=== PATIENT | male | born 1980 | race Caucasian/White ===

== ENCOUNTER 2017-12-14 20:57 | Emergency (ER) | payer BC, OTHER ==
[2017-12-14] MEDS ORDERED: Acetaminophen 500 MG TAB ONE (21:13)
--- NOTE | 2017-12-14 21:36 | RAD ---
THREE VIEWS OF THE RIGHT FOOT: 12/14/17 COMPARISON: None. HISTORY: Right foot injury with pain along the dorsal and distal aspect of the foot. FINDINGS: Three views of the right foot shows no evidence of acute fracture or dislocation. No focal soft tissu e swelling is seen. No degenerative change are present. IMPRESSION: No evidence of acute osseous abnormality. POS: [facility]
== END 2017-12-14 22:10 | disposition home or self-care (01) ==
LOC: SCSER 20:57
DX: S90.111A Contusion of right great toe without damage to nail, initial encounter (principal); S90.31XA Contusion of right foot, initial encounter; J45.909 Unspecified asthma, uncomplicated; Z79.899 Other long term (current) drug therapy; V03.90XA Pedestrian on foot injured in collision with car, pick-up truck or van, unspecified whether traffic or nontraffic accident, initial encounter; Y99.0 Civilian activity done for income or pay

== ENCOUNTER 2017-12-22 02:06 | Inpatient (IN) | payer BC ==
[2017-12-22 02:46] LABS: #Basophils 0.2 thou/uL (0.0-0.2); #Eosinphils 0.6 thou/uL (0.0-0.7); #Lymphocytes 4.4 thou/uL (1.20-3.40); #Neutrophils 10.5 thou/uL (1.40-6.50); %Basophils 0.9 % (0.0-1.0); %Eosinophils 3.5 % (0.0-10.0); %Lymphocytes 26.4 % (21.0-51.0); %Monocytes 6.2 % (0.0-10.0); Hemoglobin 11.3 g/dL (14.0-18.0); Mean Corpuscular HGB CONC 35.1 g/dL (32.0-36.0); Mean Corpuscular Hemoglobin 28.6 pg (27.0-31.0); Mean Corpuscular Volume 81.7 fl (80.0-94.0); Platelet Count 272 thou/uL (130-400); RBC Distribution Width 11.2 % (11.5-14.5); Red Blood Cell (RBC) Count 3.94 mill/uL (4.70-6.10); White Blood Cell (WBC) Count 16.7 thou/uL (4.8-10.8)
[2017-12-22 02:59] LABS: Acetaminophen Less than 6.0 mcg/mL (10.0-30.0); Alcohol Less than 10 mg/dL (Less than 10); Lipase 18 U/L (8-78); Salicylate Less than 8.0 mg/dL (15.0-30.0)
[2017-12-22 03:01] LABS: CKMB 0.9 ng/mL (0-6.6); Troponin I Less than 0.010 ng/mL (< 0.028)
[2017-12-22 03:02] LABS: ALT (SGPT) 15 U/L (8-55); AST (SGOT) 13 U/L (5-34); Albumin 3.9 g/dL (3.5-5.0); Alkaline Phosphatase 46 U/L (40-150); Anion Gap 17 mmol/L (10-20); BUN (Urea Nitrogen) 43 mg/dL (8.9-20.6); Bilirubin, Total 0.4 mg/dL (0.2-1.2); CK (CPK) 33 U/L (30-200); Calc. Creatinine Clearance 0 mL/min (70-130); Calcium 8.7 mg/dL (7.8-10.44); Carbon Dioxide 20 mmol/L (22-29); Chloride 108 mmol/L (98-107); Estimated GFR-MDRD Greater than 90; Globulin 2.2 g/dL (2.4-3.5); Glucose 132 mg/dL (70-105); Potassium 3.9 mmol/L (3.5-5.1); Protein, Total 6.1 g/dL (6.0-8.3); Sodium 141 mmol/L (136-145)
[2017-12-22] MEDS ORDERED: Sodium Chloride 0.9% 100 ML ONE (03:10)
[2017-12-22] MEDS ORDERED: Piperacillin/Tazobactam 3.375 GM VIAL ONE (03:10)
[2017-12-22] MEDS ORDERED: Pantoprazole 40 MG VIAL ONE (03:14)
[2017-12-22] MEDS ORDERED: Acetaminophen 325 MG TAB PO PRN (04:51)
[2017-12-22] MEDS ORDERED: Ondansetron HCl/PF 4 MG/2 ML Vial IVP PRN ×2 (04:51→13:32)
[2017-12-22] MEDS ORDERED: Ondansetron ODT 4 MG TAB SL PRN (04:51)
[2017-12-22] MEDS: Sodium Chloride 0.9% 1,000 ML IV SCH ×5 (05:04→20:49)
[2017-12-22 05:17] VITALS: BMI 26.6
[2017-12-22] MEDS ORDERED: metroNIDAZOLE 500 MG in Premix Bag 1 BAG IVPB SCH (06:00)
[2017-12-22 06:22] LABS: Lactic Acid 0.8 mmol/L (0.5-2.2)
[2017-12-22] MEDS ORDERED: Famotidine/PF 20 mg/2ml Vial SLOW IVP SCH (09:00)
[2017-12-22] MEDS ORDERED: Pantoprazole 40 MG VIAL IVP SCH (09:00)
[2017-12-22 09:33] LABS: ALT (SGPT) 12 U/L (8-55); AST (SGOT) 11 U/L (5-34); Albumin 3.4 g/dL (3.5-5.0); Alkaline Phosphatase 42 U/L (40-150); Anion Gap 10 mmol/L (10-20); BUN (Urea Nitrogen) 40 mg/dL (8.9-20.6); Bilirubin, Total 0.3 mg/dL (0.2-1.2); Calc. Creatinine Clearance 150 mL/min (70-130); Carbon Dioxide 23 mmol/L (22-29); Chloride 111 mmol/L (98-107); Estimated GFR-MDRD Greater than 90; Globulin 1.5 g/dL (2.4-3.5); Glucose 104 mg/dL (70-105); Potassium 4.7 mmol/L (3.5-5.1); Protein, Total 4.9 g/dL (6.0-8.3); Sodium 139 mmol/L (136-145)
[2017-12-22 09:45] LABS: #Eosinphils 0.1 thou/uL (0.0-0.7); #Lymphocytes 1.7 thou/uL (1.20-3.40); #Monocytes 0.5 thou/uL (0.11-0.59); #Neutrophils 8.5 thou/uL (1.40-6.50); %Basophils 0.2 % (0.0-1.0); %Eosinophils 1.4 % (0.0-10.0); %Lymphocytes 15.9 % (21.0-51.0); %Monocytes 4.2 % (0.0-10.0); %Neutrophils 78.2 % (42.0-75.0); Hemoglobin 9.1 g/dL (14.0-18.0); Mean Corpuscular HGB CONC 35.5 g/dL (32.0-36.0); Mean Corpuscular Hemoglobin 30.4 pg (27.0-31.0); Mean Corpuscular Volume 85.8 fl (80.0-94.0); Mean Platelet Volume 7.8 fL (7.4-10.4); Platelet Count 193 thou/uL (130-400); RBC Distribution Width 11.6 % (11.5-14.5); White Blood Cell (WBC) Count 10.9 thou/uL (4.8-10.8)
--- NOTE | 2017-12-22 09:55 | RAD ---
CHEST 1 VIEW: Date: 12/22/17 HISTORY: Syncope. COMPARISON: None. FINDINGS: Lungs are clear. No pneumothorax or effusion. Cardiac silhouette and mediastinal contours within norm al limits. IMPRESSION: No acute intrathoracic abnormality. POS: [facility]
--- NOTE | 2017-12-22 10:36 | HP ---
DATE OF ADMISSION: 12/22/2017 HISTORY OF PRESENT ILLNESS: This is a 37-year-old white male who presents with syncope and diarrhea. The patient has been doing well. Approximately 1 year ago, he underwent a bariatric surgery in [facility] he had lost 100 pounds. 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 The re were serving [employer] sandwiches. He was eating this for over the course of 2 days. Yesterday, a pproximately 1:00 p.m., he suddenly became queasy, lightheaded, and dizzy and did not feel very well. He was told to go home and he developed explosive diarrhea. He was on the toilet all day long. Fi rama, his discovered him on the floor passed out with possibly having a seizure-like activity. He was then brought to the emergency room for further evaluation. He states that he was eaten a Pot belly sandwich over the course of 2 days, which was refrigerated but he thinks it may have been spoil ed. He states several other employees also became ill and therefore he told his boss and I believe i t was not served. PAST MEDICAL HISTORY: Depression, rheumatoid arthritis, vitamin D deficiency, restless leg syndrome, reflux, asthma, hypertension. PAST SURGICAL HISTORY: Include appendectomy, tonsils, hemorrhoids, gastric bypass, Dr. Duenas on . FAMILY HISTORY: Unremarkable. SOCIAL HISTORY: He does not smoke, does not drink. 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 He is . ALLERGIES: None. MEDICATIONS: Include Singulair 10 daily, Celexa 20 daily, Wellbutrin-SR 150 daily, Claritin 10 daily , Naprosyn p.r.n. REVIEW OF SYSTEMS: As above. PHYSICAL EXAMINATION: VITAL SIGNS: Temperature 98.0, pulse 72, respirations 16, pulse ox 98, blood pressure 103/58. GENERAL: The patient is a very lightheaded, weak appearing, pale. HEENT: Clear. Mucous membranes dry. NECK: Supple. HEART: Regular rate and rhythm. LUNGS: Clear. ABDOMEN: Soft, relatively nontender. EXTREMITIES: No edema. LABORATORY: White count 16.7, H&H 11 and 32, platelet 272. Electrolytes normal. Creatinine 0.87, B UN 43, glucose 132 and 104. Lactic acid 3.8, lipase 18. Liver functions normal. ASSESSMENT: 1. Acute gastroenteritis/dysentery possibly secondary to spoiled [employer] sandwich. 2. Black tarry stools. 3. Hypotension. 4. Status post bariatric surgery one year ago. 5. History of depression. 6. History of rheumatoid arthritis. 7. Vitamin D deficiency. PLAN: 1. Consult GI. 2. N.p.o. 3. The patient's blood cultures and stool cultures were obtained. 4. The patient was started on Flagyl and piperacillin antibiotics.
[2017-12-22] MEDS ORDERED: Lidocaine 1% PF 5 ML VIAL ONE (11:24)
[2017-12-22] MEDS ORDERED: PROPOFOL 200 MG/20 ML VIAL ONE (11:24)
[2017-12-22] MEDS ORDERED: Piperacillin/Tazobactam 3.375 GM in Sodium Chloride 0.9% 100 ML IVPB SCH (12:00)
--- NOTE | 2017-12-22 12:02 | CT ---
PRELIMINARY REPORT/[facility]/EMERGENTY AFTER-HOURS PROCEDURE CT Abdomen and Pelvis With Intravenous Contrast CLINICAL HISTORY: 37 years old, male; Signs and symptoms and abnormal findings; Abnormal lab test; Elevated wbc; Nausea and other: Diarrhea; Prior surgery; Surgery date: 6+ months; Surgery type: Fredrick-en-y last year, appe ndectomy as a child; Patient HX: Diarrhea for 2 days, syncope tonight while on toilet, elevated wbc, lactate TECHNIQUE: Axial computed tomography images of the abdomen and pelvis with intravenous contrast. All CT scans at this facility use one or more dose reduction techniques, viz.: automated exposure control; ma/kV adj ustment per patient size (including targeted exams where dose is matched to indication; i.e. head); or iterative reconstruction technique. Coronal reformatted images were created and reviewed. CONTRAST: 95 mL of [id number] administered intravenously. COMPARISON: No relevant prior studies available. FINDINGS: Lung bases: No acute findings. ABDOMEN: Liver: No acute findings. No mass. Gallbladder and bile ducts: No calcified stones. No ductal dilation. Pancreas: No ductal dilation. No mass. Spleen: No mass. Adrenals: No mass. Kidneys and ureters: No acute findings. No hydronephrosis. No solid mass. Stomach and bowel: Prior gastric bypass. No evidence of bowel obstruction. Fecal loading. Diverticulo sis. Appendix: Prior appendectomy. PELVIS: Bladder: No acute findings. No mass. Reproductive: No acute findings. ABDOMEN and PELVIS: Intraperitoneal space: No acute findings. No free air. No significant fluid collection. Bones/joints: No acute fracture. Soft tissues: No acute findings. Vasculature: No acute findings. No abdominal aortic aneurysm. Lymph nodes: No lymphadenopathy. IMPRESSION: No acute findings. Thank you for allowing us to participate in the care of your patient. Dictated and Authenticated by: Amilcar Preciado MD 12/22/2017 4:06 AM Central Time ([place] & [place]) FINAL REPORT CT ABDOMEN AND PELVIS WITH CONTRAST: Date: 12/22/17 HISTORY: Nausea and vomiting. Sick for past 2 days. Elevated lactic acid and white blood cell count. COMPARISON: None. FINDING/IMPRESSION: Findings and impression are concordant with the preliminary report by Makenna. POS: [facility]
--- NOTE | 2017-12-22 12:04 | CT ---
PRELIMINARY REPORT/[facility]/EMERGENTY AFTER-HOURS PROCEDURE CT Head Without Intravenous ContrasT CLINICAL HISTORY: 37 years old, male; Injury or trauma and signs and symptoms; Fall; Initial encounter; Unconscious; Al teration of consciousness and syncope and collapse; Patient HX: Passed out today while trying to use bathroom. Has been sick for past two days with diarrhea. 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 r chantals he fell between commode and tp trujillo and as she was helping him he had generalized shaking ep isode. TECHNIQUE: Axial computed tomography images of the head/brain without intravenous contrast. All CT scans at this facility use one or more dose reduction techniques, viz.: automated exposure control; ma/Kv adjustme nt per patient size (including targeted exams where dose is matched to indication; i.e. head); or ite rative reconstruction technique. COMPARISON: No relevant prior studies available. FINDINGS: Brain: No hemorrhage. No significant white matter disease. No edema. Ventricles: No ventriculomegaly. Bones/joints: No acute fracture. Soft tissues: No acute findings. Sinuses: No significant air fluid levels. Mastoid air cells: No significant fluid. IMPRESSION: No acute findings. Thank you for allowing us to participate in the care of your patient. Dictated and Authenticated by: Amilcar Preciado MD 12/22/2017 3:27 AM Central Time ([place] & [place]) FINAL REPORT HEAD CT WITHOUT CONTRAST: Date: 12/22/17 COMPARISON: None. HISTORY: Altered mental status, syncope, collapse. FINDINGS: I agree with the preliminary report given by Makenna. Imaged paranasal sinuses and mastoid air cells are well aerated. No displaced calvarial fracture, intracranial hemorrhage, midline shift, or mass effec t. IMPRESSION: No acute findings. POS: [facility]
[2017-12-22] MEDS: Piperacillin/Tazobactam 3.375 GM in Sodium Chloride 0.9% 100 ML IVPB SCH ×2 (12:25→20:08)
--- NOTE | 2017-12-22 12:59 | CON ---
DATE OF CONSULTATION: 12/22/2017 GI INPATIENT CONSULTATION NOTE REQUESTING PHYSICIAN: Dr. Prasad. REASON FOR CONSULTATION: GI bleeding. HISTORY OF PRESENT ILLNESS: Esteban Barney is a 37-year-old man who was admitted to the hospital this morning after a syncopal episode around midnight. He has a history significant for gastric ulcers b ack in the . His last EGD in 2003 showed duodenitis and some esophagitis with my partner, Dr. Brooklynn Rogers. In last year in 11/2016, the patient underwent a Fredrick-en-Y gastric bypass with Dr. Bravo yanes. He lost 100 pounds afterward and did very well with this. He has some arthritis with a diagnosis of rheumatoid arthritis, for which he does take naproxen 2 pills per day. He had taken a PPI in the past, but has not been on a PPI recently. A couple of days ago, the patient started to feel a bit lightheaded and queasy. He started having so me nausea. He had several episodes of nonbloody emesis and then started having diarrhea, which he de scribes as tarry, slammy and dark. This happened several times over the course of a couple of days. There was a little bit of mild abdominal pain, but not much. Then, yesterday at midnight, he went i nto the bathroom. His went in sometime later and found him having passed out in the bathroom, l jamie beside the commode. He was brought to the hospital where he was found to be acutely anemic with hemoglobin 11.3 and in fact this has dropped to 9.1 this morning. Baseline hemoglobin is about 14. He also has an elevated BUN to creatinine ratio with BUN 40, creatinine 0.72. Lactic acid was initi ally elevated to 3.8, though this has declined to normal at 0.8 with fluid resuscitation. He was put on IV Protonix and started empirically on antibiotics. He states his last melenic bowel movement wa s actually yesterday. Currently, he appears hemodynamically stable, but still feels a little bit diz zy and weak. He is not tachycardic. REVIEW OF SYSTEMS: Full review of systems including constitutional, head, eyes, ears, nose, throat, GI, , cardiovascular, respiratory, musculoskeletal, and neurologic systems is negative except as no marcin in the HPI. PAST MEDICAL HISTORY: Fredrick-en-Y gastric bypass in 11/2016, duodenitis in 2003, gastric ulcer in 1993 , depression, rheumatoid arthritis, restless leg syndrome, asthma, hypertension, GERD, appendectomy, hemorrhoid surgery. ALLERGIES: No known drug allergies. OUTPATIENT MEDICATIONS: Singulair, Celexa, Wellbutrin, Claritin, naproxen 2 tablets daily. INPATIENT MEDICATIONS: Protonix 40 mg IV was administered, IV metronidazole, IV Zosyn, IV fluids run roxi at 250 mL per hour. FAMILY HISTORY: Noncontributory. SOCIAL HISTORY: No smoking or alcohol use. 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 He is . PHYSICAL EXAMINATION: VITAL SIGNS: Temperature 98.0, pulse 73, blood pressure 103/58, 98% oxygen saturation on room air. GENERAL: A 37-year-old man lying in bed comfortably, pale, but in no acute distress. SKIN: He is pale, no jaundice, no rash visible or palpable. EYES: No scleral icterus. Extraocular movements intact. ENT: Mucous membranes moist. No oral lesions. LYMPH: No submandibular or supraclavicular lymphadenopathy. THYROID: Nontender to palpation. HEART: Regular rate and rhythm. LUNGS: Clear to auscultation bilaterally. ABDOMEN: Bowel sounds present, soft and nontender to palpation. EXTREMITIES: No peripheral edema. VESSELS: Radial pulses 2+ bilaterally. NEUROLOGICAL: Cranial nerves II-XII intact bilaterally. No focal deficits. LABORATORY STUDIES: WBC 10.9, hemoglobin 9.1, this is a decline from 11.3 earlier this morning. [facility] hemoglobin is 14, platelets 193. Sodium 139, potassium 4.7, BUN 40, creatinine 0.72. Lipase 1 8. LFTs normal with total bilirubin 0.4, alkaline phosphatase 46, AST 13, ALT 15. Lactic acid 0.8. Plasma alcohol level is negative. Plasma acetaminophen levels negative. Salicylate levels negative . ASSESSMENT AND PLAN: 1. Melena. 2. Acute blood loss anemia. 3. History of Fredrick-en-Y gastric bypass. 4. History of chronic NSAID use for arthritis. The patient's presentation seems most consistent with acute upper gastrointestinal bleeding over the past couple of days. He has had significant hemoglobin decline. BUN and creatinine ratio is elevate d. He is certainly at risk for peptic ulcer disease or for possible anastomotic ulcer due to his his tory of Fredrick-en-Y gastric bypass and his chronic NSAID use. He is not currently on any acid suppress ion as an outpatient. Agree with the IV Protonix and change this to every 12 hours. We will plan fo r diagnostic upper endoscopy later today. We will also order stool studies to rule out enteric patho gens. Monitor the H&H closely. Transfuse if needed. If the patient were to develop recurrent presy ncope or tachycardia, consider moving to a monitored setting. Thank you for the consultation. Further recommendations following upper endoscopy later today.
[2017-12-22] MEDS ORDERED: Meperidine HCl/PF 25 MG/ML VIAL SLOW IVP PRN (13:32)
[2017-12-22] MEDS ORDERED: Promethazine HCl 25 MG/ML VIAL SLOW IVP PRN (13:32)
[2017-12-22] MEDS ORDERED: Promethazine HCl 25 MG/ML VIAL IM PRN (13:32)
[2017-12-22] MEDS ORDERED: Iopamidol 370 76% 100 ML VIAL ONE (14:13)
[2017-12-22] MEDS: metroNIDAZOLE 500 MG in Premix Bag 1 BAG IVPB SCH ×2 (14:40→20:48)
--- NOTE | 2017-12-22 17:42 | OP ---
GASTROINTESTINAL ENDOSCOPY NOTE DATE OF PROCEDURE: 12/22/2017 SURGEON: Fuad Cornejo M.D. TECHNICAL CONSULTANT SURGEON: None. PROCEDURE: Esophagogastroduodenoscopy, diagnostic. INDICATION: Melena and acute blood loss anemia in a patient with a history of Fredrick-en-Y gastric bypa ss surgery and chronic naproxen use. MEDICATIONS: See anesthesia record. FINDINGS: After discussion of the risks, benefits and alternatives of the procedure, informed consen t was obtained and witnessed. Pre-endoscopic cardiopulmonary examination was satisfactory. Timeout was performed before sedation was achieved. Sedation was achieved with anesthesia assistance in the endoscopy unit. A Pentax adult upper endoscope was placed into the oropharynx and passed through the cricopharyngeus under direct visualization. The esophageal mucosa appeared normal throughout with a normal-appearing Z-line. There was no evidence of any esophageal varices. The endoscope was passed forward into the gastric pouch. The gastric pouch was quite small, but the mucosa of the gastric po uch was fully examined and appeared normal. The endoscope was then advanced to the gastroenteric vishnu stomosis. Just beyond the anastomosis, there was an ulceration measuring about 1.5 cm in diameter. This was not deep. Overall, it had a clean white base, with a single tiny red spot. There was no vi sible vessel, no active bleeding, no adherent clot, no high risk stigmata for rebleeding. No endosco pic therapy was applied to this lesion. The endoscope was then advanced further down the efferent li mb of jejunum to a distance of 100 cm. I was not able to reach the distal anastomosis. All of the e xamined jejunal mucosa appeared normal. There was no old blood or active bleeding noted. The upper endoscope was then completely withdrawn and the patient allowed to recover. The patient tolerated th e procedure well. There were no immediate post-procedure complications. IMPRESSION: 1. Normal post Fredrick-en-Y anatomy. 2. Single 1.5 cm post-anastomotic ulcer with a clean base and a single tiny red spot, no active blee ding or visible vessel, no high risk stigmata for rebleeding. 3. Otherwise, normal upper endoscopy, examines to 100 cm, estimated at the mid jejunum. RECOMMENDATIONS: 1. IV PPI twice daily. Upon hospital discharge, switch to oral Protonix 40 mg twice daily. This wo uld need to be continued for at least 2 months, then continue to once daily dosing thereafter. 2. The patient needs to avoid nonsteroidal anti-inflammatory drugs going forward, including the napr oxen that he has been taking. 3. Advance diet. 4. Follow up H&H tomorrow. 5. Monitor for any signs of overt rebleeding. 6. Will check H. pylori serology with morning labs tomorrow. Please call any time with questions or concerns.
[2017-12-22] MEDS: Pantoprazole 40 MG VIAL IVP SCH (20:08)
[2017-12-23] MEDS: Sodium Chloride 0.9% 1,000 ML IV SCH ×2 (01:48→08:03)
[2017-12-23] MEDS: Acetaminophen 325 MG TAB PO PRN ×2 (02:43→12:01)
[2017-12-23] MEDS: Piperacillin/Tazobactam 3.375 GM in Sodium Chloride 0.9% 100 ML IVPB SCH ×3 (03:58→20:16)
[2017-12-23] MEDS: metroNIDAZOLE 500 MG in Premix Bag 1 BAG IVPB SCH ×3 (05:03→20:54)
[2017-12-23 05:08] LABS: #Eosinphils 0.2 thou/uL (0.0-0.7); #Lymphocytes 2.8 thou/uL (1.20-3.40); #Monocytes 0.4 thou/uL (0.11-0.59); #Neutrophils 3.7 thou/uL (1.40-6.50); %Basophils 0.6 % (0.0-1.0); %Eosinophils 2.6 % (0.0-10.0); %Lymphocytes 39.4 % (21.0-51.0); %Neutrophils 51.4 % (42.0-75.0); Mean Corpuscular HGB CONC 35.1 g/dL (32.0-36.0); Mean Corpuscular Volume 85.4 fl (80.0-94.0); Platelet Count 147 thou/uL (130-400); RBC Distribution Width 11.6 % (11.5-14.5); Red Blood Cell (RBC) Count 2.32 mill/uL (4.70-6.10); White Blood Cell (WBC) Count 7.1 thou/uL (4.8-10.8)
[2017-12-23 05:19] LABS: Anion Gap 9 mmol/L (10-20); BUN (Urea Nitrogen) 21 mg/dL (8.9-20.6); Calc. Creatinine Clearance 146 mL/min (70-130); Calcium 7.5 mg/dL (7.8-10.44); Carbon Dioxide 21 mmol/L (22-29); Chloride 114 mmol/L (98-107); Estimated GFR-MDRD Greater than 90; Glucose 74 mg/dL (70-105); Potassium 3.7 mmol/L (3.5-5.1); Sodium 140 mmol/L (136-145)
[2017-12-23] MEDS ORDERED: Sodium Chloride 0.9% 1,000 ML IV SCH (07:45)
--- NOTE | 2017-12-23 08:48 | PRG ---
DATE OF SERVICE: 12/23/2017 SUBJECTIVE: The patient is feeling much better this morning. He is able to ambulate to the bathroom without feeling faint. OBJECTIVE: VITAL SIGNS: Temperature 98.0, pulse 86, respiration 14, pulse ox 96, blood pressure 95/54. HEART: Regular rate and rhythm. LUNGS: Clear. ABDOMEN: Soft, nontender. LABORATORY DATA: White count 7.1, H&H is 7.0 and 19.8. Sodium 140, potassium 3.7, creatinine 0.74, BUN 21 down from 40. Stool studies pending. ASSESSMENT: 1. Post anastomotic 1.5 cm ulcer. 2. Acute blood loss anemia secondary to nonsteroidals. 3. Hypotension, resolving. 4. Status post bariatric surgery, Fredrick-en-Y. 5. History of depression. 6. History of rheumatoid arthritis. 7. History of vitamin D deficiency. PLAN: 1. Protonix 40 IV b.i.d. and upon discharge, p.o. b.i.d. x2 months. 2. Advance diet. 3. Recheck CBC, BMP in the a.m. 4. Change IV fluids to half normal saline with 20 KCl per liter at 125. 5. Begin iron 325 p.o. b.i.d.
[2017-12-23] MEDS: 1/2 NS w/KCL 20 mEq 1,000 ML IV SCH ×2 (09:16→18:33)
[2017-12-23] MEDS: Ferrous Sulfate 325 MG TAB PO SCH ×2 (09:16→17:07)
[2017-12-23] MEDS: Pantoprazole 40 MG VIAL IVP SCH ×2 (09:16→20:16)
--- NOTE | 2017-12-23 13:45 | PRG ---
DATE OF SERVICE: 12/23/2017 GI INPATIENT DAILY PROGRESS NOTE SUBJECTIVE: Mr. Barney is feeling okay from a GI perspective. He has good appetite and is tolerating his diet. No nausea or abdominal pain. No bowel movements since yesterday. Certainly, no further melena. He has remained hemodynamically stable. He is complaining of joint pain from his arthritis and some fatigue. OBJECTIVE: VITAL SIGNS: Temperature 98.0, pulse 77, blood pressure 92/54, 96% oxygen saturation on room air. GENERAL: No acute distress. HEART: Regular rate and rhythm. LUNGS: Clear to auscultation bilaterally. ABDOMEN: Soft, nontender to palpation. EXTREMITIES: No peripheral edema. LABORATORY STUDIES: Sodium 140, potassium 3.7, BUN declined to 21, creatinine 0.74. WBC 7.1, hemogl obin down to 7.0, platelets 147. ASSESSMENT AND PLAN: 1. Post-anastomotic ulcer associated with Fredrick-en-Y gastric bypass, no high risk stigmata for reblee ding on EGD yesterday. 2. Melena, resolved. 3. Acute blood loss anemia. Continue with the IV PPI while inpatient. I see no evidence of continu ed gastrointestinal bleeding at this time, despite the continued decline in hemoglobin. Please call back anytime if there is any concern for overt rebleeding.
[2017-12-23] MEDS: HYDROcodone/Acetaminophen 7.5/325 mg Tablet PO PRN ×2 (14:55→20:54)
[2017-12-24] MEDS: Piperacillin/Tazobactam 3.375 GM in Sodium Chloride 0.9% 100 ML IVPB SCH (03:23)
[2017-12-24] MEDS: HYDROcodone/Acetaminophen 7.5/325 mg Tablet PO PRN (03:41)
[2017-12-24 04:53] LABS: #Eosinphils 0.2 thou/uL (0.0-0.7); #Lymphocytes 1.9 thou/uL (1.20-3.40); #Monocytes 0.4 thou/uL (0.11-0.59); #Neutrophils 3.4 thou/uL (1.40-6.50); %Basophils 0.4 % (0.0-1.0); %Eosinophils 3.4 % (0.0-10.0); %Monocytes 6.1 % (0.0-10.0); %Neutrophils 57.1 % (42.0-75.0); Hemoglobin 7.3 g/dL (14.0-18.0); Mean Corpuscular HGB CONC 35.4 g/dL (32.0-36.0); Mean Corpuscular Hemoglobin 30.5 pg (27.0-31.0); Mean Corpuscular Volume 86.2 fl (80.0-94.0); Mean Platelet Volume 7.3 fL (7.4-10.4); Platelet Count 144 thou/uL (130-400); RBC Distribution Width 11.7 % (11.5-14.5); White Blood Cell (WBC) Count 5.9 thou/uL (4.8-10.8)
[2017-12-24 05:00] LABS: Anion Gap 11 mmol/L (10-20); BUN (Urea Nitrogen) 10 mg/dL (8.9-20.6); Calc. Creatinine Clearance 157 mL/min (70-130); Calcium 8.2 mg/dL (7.8-10.44); Carbon Dioxide 21 mmol/L (22-29); Chloride 111 mmol/L (98-107); Estimated GFR-MDRD Greater than 90; Glucose 77 mg/dL (70-105); Potassium 3.8 mmol/L (3.5-5.1); Sodium 139 mmol/L (136-145)
[2017-12-24] MEDS: 1/2 NS w/KCL 20 mEq 1,000 ML IV SCH (05:06)
[2017-12-24] MEDS: metroNIDAZOLE 500 MG in Premix Bag 1 BAG IVPB SCH (05:06)
--- NOTE | 2017-12-24 08:57 | PRG ---
DATE OF SERVICE: 12/24/2017 SUBJECTIVE: The patient is feeling some better. He denies stomach pain. He is tolerating fluids an d eating. His appetite has improved. He complains of a severe headache over the past 1-2 days. He has had minimal improvement with Tylenol and hydrocodone at this time. He has not been out of bed [facility], but is ambulating in the hallway, continues to have diarrhea as well as dark black stools as late as this morning at 5:00 a.m. He denies lightheadedness at this time. OBJECTIVE: VITAL SIGNS: Temperature 98.0, pulse of 73, respirations 16, blood pressure 100/59, pulse ox is 96% on room air. GENERAL: He is awake and alert. He appears uncomfortable, but no acute distress. HEENT: Mucosa is moist. NECK: Supple. HEART: Regular rate and rhythm. LUNGS: Clear. ABDOMEN: Positive bowel sounds in all 4 quadrants. ABDOMEN: Soft, nontender, nondistended, no epigastric tenderness. EXTREMITIES: No edema. LABORATORY DATA: White blood cell count down to 5.9 thousand from 16.7 thousand 2 days ago, hemoglo bin and hematocrit 7.3 and 20.7, platelets 144. Sodium 139, potassium 3.8, chloride 111, CO2 of 21, BUN and creatinine 10 and 0.69 which is down from 40 two days ago, calcium of 8.2, albumin 3.4 two da ys ago. ASSESSMENT AND PLAN: 1. This is a 37-year-old gentleman admitted for upper GI bleed secondary to post-anastomotic ulcer a ssociated with Fredrick-en-Y gastric bypass and chronic NSAID use. The patient is status post esophagoga stroduodenoscopy with no further bleeding noted. His blood count appears to be stabilizing at this t felicia, but he continues to admit having melena. I will continue to monitor. We will discontinue his I V fluids and try to see how he does on his own. We will recheck hemoglobin and hematocrit in the [facility] roxi. 2. Infectious gastritis with E. coli in his stool. I will stop IV antibiotics and switch to p.o. C ipro. 3. Nonsteroidal anti-inflammatory drug gastritis. He will discontinue taking NSAIDs and continue pr oton pump inhibitor as prescribed by Dr. Cornejo with b.i.d. for 2 months, then once daily. 4. Headache. We will switch to tramadol. Discontinue his IV fluids and increase his activity at th is point and his diet. Brain CT on admission showed no active disease.
[2017-12-24] MEDS: traMADol HCl 50 MG TAB PO PRN ×2 (09:05→15:01)
[2017-12-24] MEDS: Ferrous Sulfate 325 MG TAB PO SCH ×2 (09:06→19:37)
--- NOTE | 2017-12-24 09:49 | PRG ---
DATE OF SERVICE: 12/24/2017 GI INPATIENT DAILY PROGRESS NOTE SUBJECTIVE: Esteban is doing okay, still feels quite weak and complains of headache. There is no ab dominal pain or nausea. He has been tolerating his diet. He did have some continued melenic stools throughout the day yesterday, no bowel movement so far today. He has remained hemodynamically stable . Stable hemoglobin today at 7.3. OBJECTIVE: VITAL SIGNS: Temperature 98.0, pulse 73, blood pressure 100/59, 96% oxygen saturation on room air. GENERAL: No acute distress. HEART: Regular rate and rhythm. LUNGS: Clear to auscultation bilaterally. ABDOMEN: Soft and nontender. EXTREMITIES: No peripheral edema. LABORATORY STUDIES: Hemoglobin 7.3, WBC 5.9, platelets 144. Sodium 139, potassium 3.8, BUN 10, crea tinine 0.69. ASSESSMENT AND PLAN: 1. Acute blood loss anemia, stable today. 2. Fredrick-en-Y gastric bypass. 3. Post-anastomotic ulcer associated with Fredrick-en-Y gastric bypass, no high-risk stigmata for reblee ding on EGD two days ago. Hemoglobin finely stabilized, but he did continue to pass some melenic sto ols yesterday. My feeling is that this likely represented old blood from his quite significant bleed ing over the past few days, rather than recurrent active bleeding. Continue to monitor closely and f ollow H&H tomorrow. Continue the IV PPI and NSAID avoidance. Please call back anytime if there is c oncern for overt rebleeding.
[2017-12-24] MEDS: Acetaminophen 325 MG TAB PO PRN (15:01)
[2017-12-24] MEDS ORDERED: HYDROcodone/Acetaminophen 7.5/325 mg Tablet PO SCH (20:15)
[2017-12-24] MEDS: Ciprofloxacin 500 MG TAB PO SCH (20:42)
[2017-12-25] MEDS: traMADol HCl 50 MG TAB PO PRN ×2 (02:29→06:31)
[2017-12-25 05:19] LABS: Hemoglobin 7.7 g/dL (14.0-18.0)
[2017-12-25] MEDS: Ciprofloxacin 500 MG TAB PO SCH (06:31)
[2017-12-25 08:11] VITALS: BP 115/64; TEMP 97.9
[2017-12-25] MEDS: Ferrous Sulfate 325 MG TAB PO SCH (08:48)
--- NOTE | 2017-12-25 12:45 | DIS ---
DATE OF ADMISSION: 12/22/2017 DATE OF DISCHARGE: 12/25/2017 ADMISSION DIAGNOSES: Upper gastrointestinal bleed; anemia, symptomatic; hypotension; chronic nonster oidal antiinflammatory drug use; rheumatoid arthritis. DISCHARGE DIAGNOSES: 1. Post-anastomotic ulcer with active bleeding. 2. Headache. 3. Infectious colitis. CONSULTATIONS: Dr. Cornejo for GI. PROCEDURES: CT brain, chest x-ray, abdominopelvic CT, EGD. HOSPITAL COURSE: This is a 37-year-old gentleman with limited outpatient medical care with a history of anxiety, depression, rheumatoid arthritis followed by Dr. Duenas, who presented to the emergency department with abdominal pain and increasing weakness. In the ER, he was found to be significantly dehydrated. He had positive melena, which was guaiac positive. His hemoglobin and hematocrit dropp ed from 11 and 32 down to 7. He was seen by GI for evaluation, and underwent an EGD with a post-anas tomotic ulceration seen about 1.5 cm with no active bleeding, likely the origin of his anemia. Dr. Suhail fall recommended no further NSAID use, for which he has been taking daily for his rheumatoid arthritis . Recommended proton pump inhibition chronically. He slowly improved with his symptoms as blood cou nt has started to come back up from 7.0, hemoglobin up to 7.7. He was no longer symptomatic. His bl ood pressure remained stable. He did complain of a headache, likely due to muscle strain and some wi thdrawal symptoms from not taking the daily naproxen. His headache improved with heat as well as hot showers. He did have a normal CT of his brain. He did have stool studies that were done during the hospitalization, which were positive for E. coli. He stated that he did eat some catered food prior to this episode. He was started on IV antibiotics and switched to p.o. Cipro, which he will continu e for 3 more days after discharge. DISCHARGE PHYSICAL EXAMINATION: VITAL SIGNS: Temperature 97.9, pulse is 68, respirations 13, blood pressure 115/64, pulse ox is 99% on room air. GENERAL: He is awake and alert, in no acute distress. Speech is clear. HEENT: Mucosa is moist. NECK: Supple, full range of motion, some trapezius tenderness. No meningeal signs. HEART: Regular rate and rhythm. LUNGS: Clear. ABDOMEN: Soft, nontender, nondistended. EXTREMITIES: With no edema. NEUROLOGIC: Cranial nerves II-XII are intact. No lateralizing signs. DISCHARGE LABORATORY DATA: Hemoglobin and hematocrit 7.7 and 21.7. Again, stool studies positive fo r E. coli. CT of the brain was normal. Abdominal-pelvis CT was normal. DISCHARGE MEDICATIONS: Include, Tylenol p.r.n., Parafon Forte 500 mg t.i.d. p.r.n. spasm, Cipro 500 mg b.i.d. for 3 more days, ferrous sulfate 325 b.i.d., Protonix 40 mg b.i.d. for 2 months and then on ce daily indefinitely. He is to continue his home medications of bupropion and Cipro and Celexa. FOLLOWUP INSTRUCTIONS: Patient to avoid all NSAIDs. Follow up with me in 1 week to repeat his hemog lobin and hematocrit at that time. Follow up with Dr. Duenas for a new course of action for his rhe umatoid arthritis. Follow up with Dr. Cornejo in 3-4 weeks.
[2017-12-25 19:14] LABS: H. pylori IgA ABS Less than 9.0 units (0.0-8.9); H. pylori IgG ABS 0.31 (0.00-0.79); H. pylori IgM ABS Less than 9.0 units (0.0-8.9)
== END 2017-12-25 09:30 | disposition home or self-care (01) | DRG 378 ==
LOC: SCSER 02:06 → OBSVTOIN 03:31 → 2SW 03:31 → 2NO 12-24 12:22
PROVIDERS: ADMIT Family Medicine; ATTEND Family Medicine
PROC: 0DJ08ZZ Inspection of Upper Intestinal Tract, Via Natural or Artificial Opening Endoscopic (ICD-10-PCS; principal; 2017-12-22)
DX: K28.4 Chronic or unspecified gastrojejunal ulcer with hemorrhage (principal); D62 Acute posthemorrhagic anemia; I95.9 Hypotension, unspecified; A09 Infectious gastroenteritis and colitis, unspecified; E86.0 Dehydration; T39.315A Adverse effect of propionic acid derivatives, initial encounter; E55.9 Vitamin D deficiency, unspecified; F32.9 Major depressive disorder, single episode, unspecified; R55 Syncope and collapse; M06.9 Rheumatoid arthritis, unspecified; G25.81 Restless legs syndrome; R51 Headache; K21.9 Gastro-esophageal reflux disease without esophagitis; J45.909 Unspecified asthma, uncomplicated; I10 Essential (primary) hypertension; Z79.1 Long term (current) use of non-steroidal anti-inflammatories (NSAID); Z98.84 Bariatric surgery status; K29.60 Other gastritis without bleeding
CPT/HCPCS: 36415; 36416; 70450; 71045; 74177; 80048; 80053; 80307; 82274; 82553; 83605; 83630; 83690; 84484; 85014; 85018; 85025; 87040; 87045; 87046; 87324; 87449; 87899; 93005; 96361; 96365; 96375; A4216; C9113; J2001; J2543; J2704; J7050

== ENCOUNTER 2018-01-23 17:48 | Emergency (ER) | payer BC ==
[2018-01-23 18:21] LABS: Bilirubin Negative (Negative); Blood, Urine Moderate (Negative); Clarity Cloudy (Clear); Glucose, Urine (Dipstick) Negative (Negative); Leukocyte Negative (Negative); Nitrite Negative (Negative); Protein, Urine (Dipstick) Negative (Neg-Trace); Urobilinogen 0.2 mg/dL (0.2-1.0)
[2018-01-23 18:33] LABS: RBC/HPF GREATER THAN 50-TNTC HPF (0-3)
[2018-01-23 18:34] LABS: #Basophils 0.1 thou/uL (0.0-0.2); #Eosinphils 0.2 thou/uL (0.0-0.7); #Lymphocytes 1.6 thou/uL (1.20-3.40); #Monocytes 0.6 thou/uL (0.11-0.59); #Neutrophils 5.1 thou/uL (1.40-6.50); %Basophils 0.8 % (0.0-1.0); %Eosinophils 2.1 % (0.0-10.0); %Lymphocytes 21.4 % (21.0-51.0); %Monocytes 7.9 % (0.0-10.0); %Neutrophils 67.8 % (42.0-75.0); Hemoglobin 14.7 g/dL (14.0-18.0); Mean Corpuscular HGB CONC 33.8 g/dL (32.0-36.0); Mean Corpuscular Hemoglobin 29.6 pg (27.0-31.0); Mean Corpuscular Volume 87.5 fl (80.0-94.0); Mean Platelet Volume 6.7 fL (7.4-10.4); Platelet Count 214 thou/uL (130-400); RBC Distribution Width 12.1 % (11.5-14.5); Red Blood Cell (RBC) Count 4.95 mill/uL (4.70-6.10); White Blood Cell (WBC) Count 7.6 thou/uL (4.8-10.8)
[2018-01-23 18:34] LABS: Squamous Epithelial 0-3 HPF (0-3); WBC/HPF 0-3 HPF (0-3)
[2018-01-23 18:48] LABS: Anion Gap 14 mmol/L (10-20); BUN (Urea Nitrogen) 13 mg/dL (8.9-20.6); Calc. Creatinine Clearance 0 mL/min (70-130); Calcium 9.2 mg/dL (7.8-10.44); Carbon Dioxide 25 mmol/L (22-29); Chloride 105 mmol/L (98-107); Estimated GFR-MDRD Greater than 90; Glucose 90 mg/dL (70-105); Potassium 4.2 mmol/L (3.5-5.1); Sodium 140 mmol/L (136-145)
== END 2018-01-23 18:50 | disposition home or self-care (01) ==
LOC: SCSER 17:48
DX: N30.91 Cystitis, unspecified with hematuria (principal); D50.9 Iron deficiency anemia, unspecified; J45.909 Unspecified asthma, uncomplicated; F41.9 Anxiety disorder, unspecified; F32.9 Major depressive disorder, single episode, unspecified; Z79.899 Other long term (current) drug therapy
CPT/HCPCS: 36415; 80048; 81003; 81015; 85025; 99283

== ENCOUNTER 2018-04-12 16:49 | Emergency (ER) | payer BC ==
[2018-04-12] MEDS ORDERED: Morphine 4 MG/ML Carpuject ONE (17:14)
[2018-04-12 17:30] LABS: #Basophils 0.1 thou/uL (0.0-0.2); #Eosinphils 0.5 thou/uL (0.0-0.7); #Lymphocytes 2.6 thou/uL (1.20-3.40); #Monocytes 0.8 thou/uL (0.11-0.59); #Neutrophils 4.4 thou/uL (1.40-6.50); %Basophils 1.6 % (0.0-1.0); %Eosinophils 5.9 % (0.0-10.0); %Lymphocytes 31.4 % (21.0-51.0); %Monocytes 9.1 % (0.0-10.0); Hemoglobin 16.3 g/dL (14.0-18.0); Mean Corpuscular HGB CONC 34.6 g/dL (32.0-36.0); Mean Corpuscular Hemoglobin 27.1 pg (27.0-31.0); Mean Corpuscular Volume 78.3 fL (78.0-98.0); Mean Platelet Volume 7.1 fL (7.4-10.4); Platelet Count 214 thou/uL (130-400); RBC Distribution Width 10.3 % (11.5-14.5); White Blood Cell (WBC) Count 8.4 thou/uL (4.8-10.8)
[2018-04-12 17:33] LABS: Bilirubin Negative (Negative); Blood, Urine Negative (Negative); Clarity Clear (Clear); Glucose, Urine (Dipstick) Negative (Negative); Leukocyte Negative (Negative); Nitrite Negative (Negative); Protein, Urine (Dipstick) Negative (Neg-Trace); Specific Gravity, Urine 1.028 (1.002-1.036); Urobilinogen 0.2 mg/dL (0.2-1.0)
[2018-04-12 17:39] LABS: Amphetamine Detected (NotDetected); Barbiturates Screen Not Detected (NotDetected); Benzodiazepine Screen Not Detected (NotDetected); Cocaine Metabolite Screen Not Detected (NotDetected); Medtox Control Line Valid? VALID (VALID); Methadone Not Detected (NotDetected); Methamphetamine Not Detected (NotDetected); Opiate Screen Not Detected (NotDetected); Oxycodone Screen Not Detected (NotDetected); Phencyclidine (PCP) Not Detected (NotDetected); THC/Cannabinoid Screen Not Detected (NotDetected); Tricyclic Screen Not Detected (NotDetected)
[2018-04-12 17:45] LABS: ALT (SGPT) 33 U/L (8-55); AST (SGOT) 23 U/L (5-34); Alkaline Phosphatase 75 U/L (40-150); Anion Gap 15 mmol/L (10-20); BUN (Urea Nitrogen) 15 mg/dL (8.9-20.6); Bilirubin, Total 0.7 mg/dL (0.2-1.2); Calc. Creatinine Clearance 0 mL/min (70-130); Calcium 9.8 mg/dL (7.8-10.44); Carbon Dioxide 25 mmol/L (22-29); Chloride 107 mmol/L (98-107); Estimated GFR-MDRD Greater than 90; Globulin 2.9 g/dL (2.4-3.5); Glucose 79 mg/dL (70-105); Lipase 55 U/L (8-78); Potassium 4.3 mmol/L (3.5-5.1); Protein, Total 7.9 g/dL (6.0-8.3); Sodium 143 mmol/L (136-145)
--- NOTE | 2018-04-12 18:57 | ULT ---
SCROTAL ULTRASOUND: 04/12/18 COMPARISON: None. HISTORY: Pain in the right testicle for three days. TECHNIQUE: Multiplanar hernandez scale sonographic imaging of the scrotal contents with doppler interrogation of the testicles including color flow and spectral analysis. FINDINGS: Symmetric normal blood flow is noted within the testicles. Right testicle measures 2.4 x 4.1 x 2.0 cm , and left testicle measures 2.8 x 3.8 x 2.2 cm. No intratesticular mass is identified on either side . There is a cyst in the right epididymal head measuring 1.0 x 0.8 cm. Mildly prominent vessels are noted within the inferior aspect of the right testicle. A small right si ded varicocele is noted. IMPRESSION: Findings suggesting a small right varicocele. No evidence for testicular torsion, mass lesion or epid idymitis/orchitis. POS: H
--- NOTE | 2018-04-12 20:04 | CT ---
CT ABDOMEN AND PELVIS 04/12/18 COMPARISON: 12/22/17. HISTORY: Abdominal pain. TECHNIQUE: Serial axial CT imaging is obtained at 5 mm intervals from lung bases through pubic symphysis without contrast. Coronal reformatted imaging obtained. FINDINGS: The visualized lung bases are unremarkable. Lack of contrast media limits assessment of the viscera, bowel, vascular structures and for lymphadenopathy. Postoperative suture material noted in the left upper quadrant associated with the stomach and small bowel. No free intraperitoneal air or fluid. Liver, gallbladder, spleen, pancreas, adrenal glands, an d kidneys demonstrate no acute findings. No nephrolithiasis or evidence of obstructive uropathy is se en on either side. Limited assessment of the bowel demonstrates no evidence for inflammatory change or obstruction. Review of the osseous structures demonstrate no acute findings. There is a unilateral pars defect at L5 on the left and sclerosis in the region of the pars interarti cularis at L5 is noted on the right suggesting stress reaction, stable. No acute osseous abnormality. IMPRESSION: Stable CT examination of the abdomen/pelvis. No evidence for nephrolithiasis or obstructive uropathy. POS: [place]
== END 2018-04-12 19:08 | disposition home or self-care (01) ==
LOC: SCSER 16:49
DX: R10.31 Right lower quadrant pain (principal); N50.811 Right testicular pain; J45.909 Unspecified asthma, uncomplicated; D50.9 Iron deficiency anemia, unspecified; Z79.899 Other long term (current) drug therapy
CPT/HCPCS: 74176; 76870; 80053; 80306; 81003; 83690; 85025; 93976; 96374; J2270